=== PATIENT | male | born 1990 | race African-American/Black ===

== ENCOUNTER 2018-10-07 16:25 | Emergency (ER) | payer OTHER, MEDICAID ==
[~2018-10-07] VITALS: Ht 185.4 cm; Wt 91.6 kg
[~2018-10-07 16:25] MED LIST: ALBU18HF2 INH
--- NOTE | 2018-10-07 17:05 | NUR ---
FOR OTB C/O PRESSURE LIKE CHEST PAIN AND HEADACHE S/P ALTERCATION. PAIN LEVEL 9/10. PT IS AOX4, AMB, VSS, RR EVEN AND UNLABORED. SKIN INTACT. DENIES SOB, DIZZINESS, WEAKNESS, N/V. NO ACUTE DISTRESS NOTED. IN CUSTODY, WITH MAKAYLA AT BEDSIDE. READY FOR EVAL.
[2018-10-07] MEDS ORDERED: ACETAMINOPHEN ES 500 MG TABLET ONE (17:06)
--- NOTE | 2018-10-07 17:17 | NUR ---
PT TAKEN TO RADIOLOGY FOR CT VIA FABIOLA
[2018-10-07] MEDS ORDERED: ACETAMINOPHEN 325 MG TABLET PO ONE (17:30)
--- NOTE | 2018-10-07 17:54 | NUR ---
Patient discharged to home in stable condition. Written and verbal after care instructions given. Patient verbalizes understanding of instruction.
[2018-10-07 17:55] VITALS: BP 121/78
== END 2018-10-07 17:50 ==
LOC: ER 16:36
DX: S06.0X0A Concussion without loss of consciousness, initial encounter (principal); R07.89 Other chest pain; F20.9 Schizophrenia, unspecified; J45.909 Unspecified asthma, uncomplicated; F31.9 Bipolar disorder, unspecified; Z79.899 Other long term (current) drug therapy; Y04.0XXA Assault by unarmed brawl or fight, initial encounter; Y93.89 Activity, other specified; Y92.89 Other specified places as the place of occurrence of the external cause; Y99.8 Other external cause status
CPT/HCPCS: 70450-TC; 71045-TC

== ENCOUNTER 2019-03-03 12:20 | Emergency (ER) | payer OTHER, MEDICAID ==
[~2019-03-03] VITALS: Ht 185.4 cm; Wt 94.8 kg
--- NOTE | 2019-03-03 12:30 | NUR ---
PT BIB DEBURR TECHNICIAN IN CUSTODY C/O MIDSTERNAL CHEST PAIN, NON RADIATING X 2 HOURS, PT IS AAOX4, NOT IN RESPIRATORY DISTRESS, V/S STABLE, KEPT RESTED AND COMFORTABLE, WILL CONTINUE TO MONITOR.
--- NOTE | 2019-03-03 12:40 | NUR ---
SEEN AND EXAMINED URVASHI SAUNDERS.
[2019-03-03] MEDS ORDERED: MAG HYDROX/AL HYDROX/SIMETH 30 ML UDC ONE (12:52)
--- NOTE | 2019-03-03 12:55 | NUR ---
VAT TENDER AT BEDSIDE FOR XRAY.
--- NOTE | 2019-03-03 12:55 | NUR ---
ER PHLEB AT BEDSIDE FOR BLOOD DRAW.
[2019-03-03] MEDS ORDERED: MAG HYDROX/AL HYDROX/SIMETH 30 ML UDC PO ONE (13:00)
[2019-03-03 13:14] LABS: BASOPHILS # (AUTO) 0.1 /CMM (0.0-0.2); BASOPHILS % (AUTO) 1.3 % (0.0-2.0); EOSINOPHILS % (AUTO) 2.8 % (0.0-6.0); HEMATOCRIT 49 % (39-51); HEMOGLOBIN 16.1 g/dL (13.5-17.5); LYMPHOCYTES # (AUTO) 1.6 /CMM (0.8-4.8); LYMPHOCYTES % (AUTO) 28.2 % (20.0-44.0); MEAN CORPUSCULAR HGB CONC 33 g/dl (31.0-36.0); MEAN CORPUSCULAR VOLUME 89 fL (80-96); MONOCYTES # (AUTO) 0.5 /CMM (0.1-1.30); MONOCYTES % (AUTO) 9.6 % (2.0-12.0); NEUTROPHILS # (AUTO) 3.3 /CMM (1.8-8.9); NEUTROPHILS % (AUTO) 58.1 % (43.0-81.0); PLATELET COUNT (AUTO) 277 /CMM (150-450); RED BLOOD CELL COUNT(AUTO) 5.56 MIL/uL (4.5-6.0); WHITE BLOOD COUNT (AUTO) 5.7 K/uL (4.3-11.0)
[2019-03-03 13:22] LABS: CALCIUM, SERUM 9.1 mg/dL (8.5-10.1); CREATININE 0.7 mg/dL (0.6-1.3); POTASSIUM 4.4 mmol/L (3.5-5.1)
[2019-03-03] MEDS ORDERED: ALBUTEROL FS 2.5 MG/3 ML VIAL.NEB NEB ONE (13:30)
[2019-03-03] MEDS ORDERED: IPRATROPIUM NEB FS 0.5 MG/2.5 ML AMPUL.NEB NEB ONE (13:30)
[2019-03-03] MEDS ORDERED: ACETAMINOPHEN ES 500 MG TABLET ONE (13:40)
[2019-03-03] MEDS ORDERED: IPRATROPIUM NEB FS 0.5 MG/2.5 ML AMPUL.NEB ONE (13:41)
[2019-03-03] MEDS ORDERED: ALBUTEROL FS 2.5 MG/3 ML VIAL.NEB ONE (13:41)
--- NOTE | 2019-03-03 13:42 | NUR ---
RT AT BEDSIDE FOR BREATHING TREATMENT.
--- NOTE | 2019-03-03 14:34 | NUR ---
PAGED DR NAM FOR CARDIOLOGY
[2019-03-03] MEDS ORDERED: ASPIRIN 81 MG TAB.CHEW PO ONE (15:00)
--- NOTE | 2019-03-03 15:03 | NUR ---
DIFFICULTY ESTABLISHING IV LINE, ANDREA SAUNDERS AWARE.
--- NOTE | 2019-03-03 15:04 | NUR ---
URINE SPECIMEN COLLECTED AND SENT TO LAB.
[2019-03-03] MEDS ORDERED: ASPIRIN 81 MG TAB.CHEW ONE (15:07)
[2019-03-03] MEDS ORDERED: IOHEXOL-350 100 ML VIAL IV ONE ×4 (15:11→17:58)
[2019-03-03] MEDS ORDERED: CT SWABBABLE VALVE TRANS SET 1 EA INFUS.SET MC ONE ×4 (15:12→17:58)
[2019-03-03] MEDS ORDERED: IV NS 0.9% 250 ML IV ONE ×4 (15:12→17:58)
--- NOTE | 2019-03-03 16:39 | NUR ---
PT IS WHEELED TO CT SCAN VIA WHEELCHAIR
[2019-03-03] MEDS ORDERED: NITROGLYCERIN 0.4 MG/TAB BOTTLE ONE (16:48)
[2019-03-03] MEDS ORDERED: METOPROLOL TARTRATE INJ 5 MG/5 ML AMPUL ONE ×2 (16:51→17:58)
[2019-03-03] MEDS ORDERED: METOPROLOL TARTRATE INJ 5 MG/5 ML AMPUL IVP ONE (17:00)
[2019-03-03] MEDS ORDERED: NITROGLYCERIN 0.4 MG/TAB BOTTLE SL ONE (17:00)
[2019-03-03] MEDS ORDERED: IV NS 0.9% 500 ML IV ONE ×2 (17:00)
--- NOTE | 2019-03-03 18:27 | NUR ---
FOOD TRAY PROVIDED.
--- NOTE | 2019-03-03 19:22 | NUR ---
IV removed. Catheter intact and site benign. Pressure and 4x4 applied to site. No bleeding noted. Patient discharged to home in stable condition. Written and verbal after care instructions given. Patient verbalizes understanding of instruction.
[2019-03-03 19:23] VITALS: BP 122/71
== END 2019-03-03 19:24 ==
LOC: ER 12:20
DX: R07.89 Other chest pain (principal); R79.89 Other specified abnormal findings of blood chemistry; J45.909 Unspecified asthma, uncomplicated; F31.9 Bipolar disorder, unspecified; F20.9 Schizophrenia, unspecified; Z02.89 Encounter for other administrative examinations
CPT/HCPCS: 36415; 71045; 75574; 80048; 80305; 84484 ×2; 85025; 93005 ×2; 94640 ×2; 99284; J3490 ×2; J7050 ×4; Q9967 ×4

== ENCOUNTER 2020-08-09 01:38 | Emergency (ER) | payer OTHER ==
[~2020-08-09] VITALS: Ht 185.4 cm; Wt 90.7 kg
--- NOTE | 2020-08-09 01:45 | NUR ---
PT BIBA FOR GENERALIZED ABD PAIN W/ N/V/D/ X 1 DAY. PT AAOX4, VSS,RESPIRATIONS EVEN AND UNLABORED ON RA W/ NAD NOTED. PT CONNECTED TO THE MONITOR AND POX
[2020-08-09 02:23] LABS: BASOPHILS % (AUTO) 0.5 % (0.0-2.0); EOSINOPHILS % (AUTO) 0.4 % (0.0-6.0); HEMATOCRIT 49 % (39-51); HEMOGLOBIN 15.7 g/dL (13.5-17.5); LYMPHOCYTES # (AUTO) 0.7 /CMM (0.8-4.8); LYMPHOCYTES % (AUTO) 8.1 % (20.0-44.0); MEAN CORPUSCULAR HGB CONC 32 g/dl (31.0-36.0); MEAN CORPUSCULAR VOLUME 89 fL (80-96); MONOCYTES # (AUTO) 0.6 /CMM (0.1-1.30); MONOCYTES % (AUTO) 7.3 % (2.0-12.0); NEUTROPHILS # (AUTO) 7.3 /CMM (1.8-8.9); NEUTROPHILS % (AUTO) 83.7 % (43.0-81.0); PLATELET COUNT (AUTO) 266 /CMM (150-450); RED BLOOD CELL COUNT(AUTO) 5.56 MIL/uL (4.5-6.0); WHITE BLOOD COUNT (AUTO) 8.7 K/uL (4.3-11.0)
[2020-08-09 02:44] LABS: CALCIUM, SERUM 9.2 mg/dL (8.5-10.1); CREATININE 0.8 mg/dL (0.6-1.3); POTASSIUM 3.7 mmol/L (3.5-5.1)
[2020-08-09 02:50] LABS: ALBUMIN 3.1 g/dL (3.4-5.0); BILIRUBIN,DIRECT 0.1 mg/dL (0.0-0.2); BILIRUBIN,TOTAL 0.3 mg/dL (0.2-1.0); TOTAL PROTEIN, SERUM 8.4 g/dL (6.4-8.2)
[2020-08-09] MEDS ORDERED: ONDANSETRON HCL/PF 4 MG/2 ML VIAL ONE (03:29)
[2020-08-09] MEDS ORDERED: IV NS 0.9% 1,000 ML BAG IV ONE (03:30)
[2020-08-09] MEDS ORDERED: ONDANSETRON HCL/PF 4 MG/2 ML VIAL IVP ONE (03:30)
[2020-08-09] MEDS ORDERED: ONDANSETRON 4 MG TAB.RAPDIS ONE (03:52)
[2020-08-09] MEDS ORDERED: ONDANSETRON 4 MG TAB.RAPDIS SL ONE (04:00)
--- NOTE | 2020-08-09 05:57 | NUR ---
Patient discharged to home in stable condition. Written and verbal after care instructions given. Patient verbalizes understanding of instruction.
--- NOTE | 2020-08-09 05:57 | NUR ---
PATIENT IS AMBULATORY WITH A STEADY GAIT.
[2020-08-09 05:58] VITALS: BP 132/74
== END 2020-08-09 05:59 | disposition home or self-care (01) ==
LOC: ER 01:40
DX: R10.84 Generalized abdominal pain (principal); R19.7 Diarrhea, unspecified; J45.909 Unspecified asthma, uncomplicated; Z59.0 Homelessness; Z79.899 Other long term (current) drug therapy
CPT/HCPCS: 36415; 80048; 80076; 83690; 85025; 99283; J2405; J7030; Q0162

== ENCOUNTER 2021-05-25 02:53 | Inpatient (IN) | payer MEDICAID, OTHER ==
[~2021-05-25] VITALS: Ht 182.9 cm; Wt 104.3 kg
[2021-05-25] MEDS ORDERED: LORAZEPAM INJ 2 MG/ML VIAL ONE ×3 (03:00→09:23)
[2021-05-25] MEDS ORDERED: LORAZEPAM INJ 2 MG/ML VIAL IM ONE (03:00)
--- NOTE | 2021-05-25 03:15 | NUR ---
PATIENT BIBRA C/O SMOKING AND INJECTING UNKNOWN SUBSTANCE. PATIENT IS A/O X 3, RR EVEN, NO SIGNS OF SOB NOTED. PATIENT PLACED IN ER BED 14, WITH SITTER AT BEDSIDE.
[2021-05-25] MEDS ORDERED: HALOPERIDOL LACTATE INJ 5 MG/ML VIAL ONE (03:25)
[2021-05-25] MEDS ORDERED: diphenhydrAMINE HCL 50 MG/ML VIAL ONE (03:25)
[2021-05-25] MEDS ORDERED: diphenhydrAMINE HCL 50 MG/ML VIAL IM ONE (03:30)
[2021-05-25] MEDS ORDERED: HALOPERIDOL LACTATE INJ 5 MG/ML VIAL IM ONE (03:30)
--- NOTE | 2021-05-25 03:33 | NUR ---
[employer] AT BED SIDE TO PALCE PT ON HOLD.
[2021-05-25 03:35] LABS: BASOPHILS # (AUTO) 0.1 K/uL (0.0-0.2); BASOPHILS % (AUTO) 0.7 % (0.0-2.0); EOSINOPHILS % (AUTO) 0.2 % (0.0-6.0); HEMATOCRIT 43 % (39-51); HEMOGLOBIN 13.9 g/dL (13.5-17.5); LYMPHOCYTES % (AUTO) 13.9 % (20.0-44.0); MEAN CORPUSCULAR HGB CONC 33 g/dl (31.0-36.0); MEAN CORPUSCULAR VOLUME 84 fL (80-96); MONOCYTES # (AUTO) 2.1 K/uL (0.1-1.30); MONOCYTES % (AUTO) 14.9 % (2.0-12.0); NEUTROPHILS % (AUTO) 70.3 % (43.0-81.0); PLATELET COUNT (AUTO) 235 K/uL (150-450); RED BLOOD CELL COUNT(AUTO) 5.04 MIL/uL (4.5-6.0); WHITE BLOOD COUNT (AUTO) 14.3 K/uL (4.3-11.0)
[2021-05-25 03:48] LABS: CALCIUM, SERUM 8.5 mg/dL (8.5-10.1); CARBON DIOXIDE 26 mmol/L (21-32); CHLORIDE 101 mmol/L (98-107); CREATININE 1.4 mg/dL (0.6-1.3); GLUCOSE 108 mg/dL (74-106); POTASSIUM 3.2 mmol/L (3.5-5.1); SODIUM SERUM 141 mmol/L (136-145); UREA NITROGEN, BLOOD 23 mg/dL (7-18)
[2021-05-25 03:53] LABS: ALANINE AMINOTRANSFERASE 228 U/L (12-78); ALBUMIN 3.2 g/dL (3.4-5.0); ALCOHOL, BLOOD < 3 mg/dL (0-0); ALKALINE PHOSPHATASE 80 U/L (46-116); ASPARTATE AMINOTRANSFERASE 412 U/L (15-37); BILIRUBIN,DIRECT 0.2 mg/dL (0.0-0.2); BILIRUBIN,TOTAL 0.7 mg/dL (0.2-1.0)
[2021-05-25 03:56] LABS: ACETAMINOPHEN 0 ug/ml (10-30)
--- NOTE | 2021-05-25 04:14 | NUR ---
URINE COLLECTED AND SENT TO LAB
[2021-05-25 04:19] LABS: BILIRUBIN,URINE MODERATE (NEGATIVE); COLOR,URINE DARK YELLOW (YELLOW); LEUKOCYTE ESTERASE ,URINE Negative (NEGATIVE); NITRITE, URINE Negative (NEGATIVE); PH,URINE 5.5 (5.0-8.0); PROTEIN,URINE >=300 mg/dl (NEGATIVE); UGLUCOSE Negative (NEGATIVE)
[2021-05-25 04:24] LABS: BASOPHILS % (MANUAL) 0 % (0.0-2.0); EOSINOPHILS % (MANUAL) 0 % (0-4); LYMPHOCYTES % (MANUAL) 13 % (16-48); MONOCYTES % (MANUAL) 12 % (0-11.0); NEUTROPHILS % (MANUAL) 75 (42-76)
[2021-05-25 04:36] LABS: BACTERIA,URINE None seen /HPF (None Seen); COARSE GRANULAR CASTS,URINE Moderate /LPF (None Seen); SQUAMOUS EPITHELIAL CELL,UR Few /HPF (None Seen); WBC,URINE 0-2 /HPF (0-3)
--- NOTE | 2021-05-25 06:02 | NUR ---
PATIENT IN BED SLEEPING, EASY TO AROSUE. PATIENT VSS, PATIENT CONNECETED TO NUMERICAL CONTROL ROUTER OPERATOR AND POX.
[2021-05-25] MEDS: IV NS 0.9% 1,000 ML IV ONE ×2 (07:14→07:19)
[2021-05-25] MEDS: LORAZEPAM INJ 2 MG/ML VIAL IM ONE ×2 (07:14→07:19)
--- NOTE | 2021-05-25 09:23 | NUR ---
MOVE SHEET SUBMITTED.
[2021-05-25] MEDS ORDERED: IV NS 0.9% 1,000 ML IV ONE ×2 (09:30)
[2021-05-25] MEDS ORDERED: LORAZEPAM INJ 2 MG/ML VIAL IV ONE (09:30)
--- NOTE | 2021-05-25 09:30 | NUR ---
PATIENT IS STILL SCREAMING, YELLING AND RESTLESS.
--- NOTE | 2021-05-25 09:53 | NUR ---
COVID SWAB DONE AND SENT TO THE LAB
[2021-05-25] MEDS ORDERED: ONDANSETRON HCL/PF 4 MG/2 ML VIAL IVP PRN (12:00)
[2021-05-25] MEDS ORDERED: Z GUARD REMEDY 2 OZ OINT TP PRN (12:00)
[2021-05-25] MEDS ORDERED: MAG HYDROX/AL HYDROX/SIMETH 30 ML UDC PO PRN (12:00)
[2021-05-25] MEDS ORDERED: MAGNESIUM HYDROXIDE 30 ML UDC PO PRN (12:00)
[2021-05-25] MEDS ORDERED: ACETAMINOPHEN 325 MG TABLET PO PRN (12:00)
[2021-05-25] MEDS ORDERED: LORAZEPAM INJ 2 MG/ML VIAL IV PRN (12:00)
--- NOTE | 2021-05-25 12:26 | NUR ---
PSYCH CONSULT ORDERED BY FLEX AU, LIQUOR STORES AND AGENCIES SUPERVISOR PSYCH IS DR. VERA. [facility]
[2021-05-25] MEDS: IV NS 0.9% 1,000 ML IV PRN (12:55)
[2021-05-25 13:20] LABS: CALCIUM, SERUM 7.8 mg/dL (8.5-10.1); CREATININE 0.8 mg/dL (0.6-1.3); POTASSIUM 3.3 mmol/L (3.5-5.1)
--- NOTE | 2021-05-25 15:52 | NUR ---
PATIENT ASLEEP, RESTING, NO DISTRESS NOTED. NEEDS ATTENDED.
[2021-05-25] MEDS: HEPARIN SODIUM, PORCINE 5000 UNITS/1 ML VIAL SQ SCH ×2 (17:11→21:00)
--- NOTE | 2021-05-25 19:45 | NUR ---
PATIENT ROOM NO AVAILABLE NO SITTER AT THIS TIME
[2021-05-25] MEDS ORDERED: ZOLPIDEM TARTRATE 5 MG TABLET PO PRN (22:00)
--- NOTE | 2021-05-25 22:30 | NUR ---
PATIENT IN BED RESTING, A/O, RR EVEN AND UNLABORED NO SOB NOTED. PATIENT VSS. PATIENT CONNECTED TO PROGRAM PROJECT MANAGER.
--- NOTE | 2021-05-26 06:17 | NUR ---
ROOM 106 AFTER CHANGE OF SHIFT
--- NOTE | 2021-05-26 07:45 | NUR ---
REPORT GIVEN TO EDMUND OLSON. PATIENT ASLEEP BUT EASILY AROUSABLE. PATIENT CALM AT THIS TIME. KEPT COMFORTABLE. TRANSFERRED TO ROOM 106 IN STABLE CONDITION.
--- NOTE | 2021-05-26 07:50 | NUR ---
RN NOTE RECEIVE REPORT FROM ER NURSE DENNISE.
--- NOTE | 2021-05-26 07:59 | NUR ---
RN NOTE RECEIVE PATIENT FROM ER VIA GURNEY, AMBULATED FROM THE GURNEY TO THE BED STEADY GAIT, ADMITTING PATIENT AT THIS TIME, BODY CHECK DONE, SKIN INTACT.
[2021-05-26 08:00] VITALS: BP 117/74
[2021-05-26] MEDS: IV NS 0.9% 1,000 ML IV PRN ×3 (08:43→17:54)
[2021-05-26] MEDS: HEPARIN SODIUM, PORCINE 5000 UNITS/1 ML VIAL SQ SCH ×2 (09:10→21:37)
--- NOTE | 2021-05-26 11:32 | NUR ---
RN NOTE FLEX AU NOTIFIED PATIENT REFUSED HIS BLOOD DRAW THIS AM, AND ALSO REFUSED HIS REDRAW, PATIENT IS AWAKE, AND ALERT AND ORIENTED X3 AT THIS TIME.
--- NOTE | 2021-05-26 14:40 | NUR ---
RN NOTE NOTIFIED FLEX CASANOVA-MB OF 68.5, NO NEW ORDER AT THIS TIME.
[2021-05-26 15:44] LABS: BASOPHILS % (AUTO) 0.2 % (0.0-2.0); EOSINOPHILS % (AUTO) 1.4 % (0.0-6.0); HEMATOCRIT 38 % (39-51); HEMOGLOBIN 12.2 g/dL (13.5-17.5); LYMPHOCYTES # (AUTO) 1.5 K/uL (0.8-4.8); LYMPHOCYTES % (AUTO) 19.5 % (20.0-44.0); MEAN CORPUSCULAR HGB CONC 32 g/dl (31.0-36.0); MEAN CORPUSCULAR VOLUME 85 fL (80-96); MONOCYTES # (AUTO) 0.8 K/uL (0.1-1.30); MONOCYTES % (AUTO) 11.3 % (2.0-12.0); NEUTROPHILS % (AUTO) 67.6 % (43.0-81.0); PLATELET COUNT (AUTO) 183 K/uL (150-450); RED BLOOD CELL COUNT(AUTO) 4.49 MIL/uL (4.5-6.0); WHITE BLOOD COUNT (AUTO) 7.5 K/uL (4.3-11.0)
[2021-05-26 15:57] LABS: CREATININE 0.6 mg/dL (0.6-1.3); MAGNESIUM 2.2 mg/dL (1.8-2.4); POTASSIUM 3.2 mmol/L (3.5-5.1)
[2021-05-26 16:00] VITALS: BP 117/74
--- NOTE | 2021-05-26 16:59 | NUR ---
RN NOTE DR. FLEX AU NOTIFIED PATIENT POTASSIUM OF 3.2, MD AWARE NO NEW ORDER AT THIS TIME.
[2021-05-26] MEDS: OLANZAPINE 5 MG TABLET PO SCH (17:17)
[2021-05-26] MEDS ORDERED: POTASSIUM CHLORIDE 20 MEQ TAB.PRT.SR PO ONE (17:30)
--- NOTE | 2021-05-26 18:00 | NUR ---
RN NOTES RECEIVED PATIENT ON BED, AWAKE, ALERT, AND VERBALLY RESPONSIVE. ABLE TO MAKE NEEDS KNOWN. NO SIGNIFICANT CHANGES DURING SHIFT. BREATHING EVEN AND UNLABORED. CURRENTLY ON ROOM AIR. SKIN IS WARM AND DRY TO TOUCH. AFEBRILE. NO COMPLAINTS OF PAIN DURING SHIFT. PATIENT IS INDEPENDENT AND CAN AMBULATE TO THE BATHROOM. PATIENT ON DVT PROPHYLAXIS, NO SIGNS AND SYMPTOMS OF BLEEDING. ON ASPIRATION PRECAUTION DURING MEALS. REPLACED POTASSIUM SECONDARY TO LOW POTASSIUM LEVEL. SAFETY MEASURES OBSERVED. ON 1-1 OBSERVATION AT THIS TIME. PLACED CALL LIGHT WITHIN SHIFT. WILL ENDORSE TO NOC SHIFT ACCORDINGLY.
--- NOTE | 2021-05-26 19:00 | NUR ---
RN NOTE RECEIVED PATIENT IN BED, AO X 4, IN NO S/SX OF ACUTE DISTRESS AT THIS TIME, ON 5150 HOLD START 05/25/210 AND ENDS 05/28/21299, SITTER AT BEDSIDE, BREATHING EVEN AND UNLABORED, SATURATION AT 96% ON ROOM AIR, HR IS 80. NOTED IV SITE AT RFA 22G, PATENT AND FLUSHING WELL, NO S/S OF INFECTION OR INFILTRATION WITH IV FLUID OF NS INFUSING AT 200 ML/HR. SAFETY MEASURES IMPLEMENTED. PATIENT BED ALARM IS ON. HEAD OF BED ELEVATED. BED IS LOCKED, IN LOWEST POSITION AND SIDE RAILS UP. CALL LIGHT WITHIN REACH OF THE PATIENT. WILL CONTINUE TO MONITOR AND REASSESS FOR ANY CHANGES.
[2021-05-26 20:00] VITALS: BP 133/77
[2021-05-26] MEDS ORDERED: OLANZAPINE 10 MG TABLET PO SCH (22:00)
[2021-05-27] MEDS: IV NS 0.9% 1,000 ML IV PRN ×4 (00:29→18:43)
[2021-05-27 04:00] VITALS: BP 108/71
--- NOTE | 2021-05-27 07:52 | NUR ---
RN NOTES RECEIVED PATIENT ON BED, AWAKE, ALERT AND VERBALLY RESPONSIVE. AOX4. ABLE TO MAKE NEEDS KNOWN. BREATHING EVEN AND UNLABORED. NO SOB NOTED. CURRENTLY ON ROOM AIR. SKIN IS WARM AND DRY TO TOUCH AFEBRILE. NO COMPLAINTS OF DISCOMFORT. PATIENT NOTED WITH IV ACCESS ON RIGHT FOREARM. PATENT AND ABLE TO FLUSH. PATIENT CURRENTLY ON IV HYDRATION. PATIENT BED ON LOWEST POSITION, 1-1 SITTER AT THE MOMENT. CALL LIGHT WITHIN REACH.
[2021-05-27 08:00] VITALS: BP 128/71
[2021-05-27] MEDS: OLANZAPINE 5 MG TABLET PO SCH ×2 (08:20→17:13)
[2021-05-27] MEDS: HEPARIN SODIUM, PORCINE 5000 UNITS/1 ML VIAL SQ SCH ×2 (08:20→20:55)
[2021-05-27 10:11] LABS: BASOPHILS % (AUTO) 0.4 % (0.0-2.0); EOSINOPHILS % (AUTO) 1.7 % (0.0-6.0); HEMATOCRIT 38 % (39-51); HEMOGLOBIN 12.2 g/dL (13.5-17.5); LYMPHOCYTES # (AUTO) 1.2 K/uL (0.8-4.8); LYMPHOCYTES % (AUTO) 17.5 % (20.0-44.0); MEAN CORPUSCULAR HGB CONC 32 g/dl (31.0-36.0); MEAN CORPUSCULAR VOLUME 87 fL (80-96); MONOCYTES # (AUTO) 0.8 K/uL (0.1-1.30); NEUTROPHILS # (AUTO) 4.9 K/uL (1.8-8.9); NEUTROPHILS % (AUTO) 69.4 % (43.0-81.0); PLATELET COUNT (AUTO) 207 K/uL (150-450); WHITE BLOOD COUNT (AUTO) 7.1 K/uL (4.3-11.0)
[2021-05-27 10:13] LABS: CALCIUM, SERUM 8.3 mg/dL (8.5-10.1); CREATININE 0.6 mg/dL (0.6-1.3); POTASSIUM 3.4 mmol/L (3.5-5.1)
--- NOTE | 2021-05-27 10:22 | NUR ---
RN NOTE PATIENT ATTEMPTED TO LEAVE THE HOSPITAL, PATIENT ON 72 HOUR HOLD UNTIL 05/28/21 0300, CODE OLAMIDE CALLED, EXPLAINED TO PATIENT THAT HE WAS PUT ON A 72 HOUR HOLD, PATIENT UNDERSTOOD AND WENT BACK TO HIS ROOM PATIENT ON HIS ROOM AT THIS TIME, MADE COMFORTABLE, SUPERVISOR SCOURING PADS FLEX AU MADE AWARE, WILL CONTINUE TO MONITOR.
[2021-05-27] MEDS ORDERED: OLAN10TA3 PO (10:24)
[2021-05-27] MEDS ORDERED: OLAN5TAB3 PO (10:24)
--- NOTE | 2021-05-27 11:45 | NUR ---
RN NOTES PATIENT SEEN BY DR. VERA FOR REEVALUATION. DR. VERA EXPLAINED TO PATIENT REGARDING CURRENT HOLD STATUS. PATIENT WILL BE ON HOLD UNTIL MEDICALLY STABLE. DR. VERA EXPLAINED TO THE PATIENT, PATIENT VERBALIZED UNDERSTANDING.
--- NOTE | 2021-05-27 17:00 | NUR ---
RN NOTE SEEN BY DR. VERA, PATIENT WILL BE PUT ON HOLD FOR 14 DAYS BUT CAN BE DISCONTINUED UPON RE EVALUATION OR IF NEEDED. FLEX AU MADE AWARE, POTASSIUM OF 3.4 FLEX AU MADE AWARE. CREATININE KINASE TREANDING DOWN 05/26- 8952 , 05/27 8050, FLEX AU NOTIFIED. CK-MB RESULT STILL PENDING.
--- NOTE | 2021-05-27 17:29 | NUR ---
RN NOTES RECEIVED A CALL FROM LAB. PATIENT POSITIVE FOR MRSA OF THE NARES, MADE AWARE. MD WILL PUT IN ORDER.
--- NOTE | 2021-05-27 18:56 | NUR ---
RN NOTES NO SIGNIFICANT CHANGES DURING SHIFT. PATIENT IN BED, SLEEPING, AXO4. ABLE TO MAKE NEEDS KNOWN. BREATHING EVEN AND UNLABORED. NO SOB NOTED. NO COMPLAINTS OF PAIN DURING SHIFT. SKIN IS WARM AND DRY TO TOUCH. AFEBRILE. PATIENT ABLE TO AMBULATE TO THE RESTROOM. PATIENT CURRENTLY ON 1-1 SITTER. EARLIER PATIENT ATTEMPTED TO ELOPE. EXPLAINED TO PATIENT THE REASON FOR HOLD. PATIENT VERBALIZED UNDERSTANDING AND RETURNED TO THIS ROOM. PATIENT POSITIVE FOR MRSA IN THE NARES. MD NOTIFIED. CONTACT/DROPLET PRECAUTION OBSERVED. PLACED CALL LIGHT WITHIN REACH. ENDORSED ACCORDINGLY TO NEXT SHIFT FOR CONTINUITY OF CARE.
[2021-05-27 20:00] VITALS: BP 134/79
--- NOTE | 2021-05-27 20:30 | NUR ---
2030 Received patient in bed with sitter at bedside. Patient asleep but easily arousable. No c/o pain or any discomfort when asked. Independent with turning and repositioning. IVF infusing to RFA site. With leaking noted when checked for patency. Removed and inserted new IV site on right hand. Patient denied SOB. Cooperative with care. Kept clean and comfortable. Needs attended. Sitter remains at bedside for safety.
[2021-05-27] MEDS ORDERED: OLANZAPINE 10 MG TABLET PO SCH (22:00)
--- NOTE | 2021-05-27 23:50 | NUR ---
2350 Sleeping on his side. Sitter at bedside. No significant changes in status noted. Cont. to deny pain when asked. Cooperative with care. All needs anticipated. Kept clean and dry at all times.
[2021-05-28] MEDS: IV NS 0.9% 1,000 ML IV PRN ×2 (02:05→08:23)
--- NOTE | 2021-05-28 03:50 | NUR ---
0350 Assisted to bathroom with steady gait. No significant changes in condition noted. Remains cooperative with care. Sitter at bedside at all times for safety.
--- NOTE | 2021-05-28 06:00 | NUR ---
0600 Reassessment done. Sleeping on his stomach. No signs of distress noted. Cont. to deny pain when asked. IVF infusing to right hand site. Instructed patient to be careful with turning to avoid IV dislodgement. No behavior problem noted. Kept clean and comfortable at all times. Needs attended.
[2021-05-28 06:09] LABS: BASOPHILS % (AUTO) 0.5 % (0.0-2.0); HEMATOCRIT 35 % (39-51); HEMOGLOBIN 11.5 g/dL (13.5-17.5); LYMPHOCYTES # (AUTO) 1.7 K/uL (0.8-4.8); LYMPHOCYTES % (AUTO) 27.8 % (20.0-44.0); MEAN CORPUSCULAR HGB CONC 33 g/dl (31.0-36.0); MEAN CORPUSCULAR VOLUME 86 fL (80-96); MONOCYTES # (AUTO) 0.7 K/uL (0.1-1.30); MONOCYTES % (AUTO) 10.8 % (2.0-12.0); NEUTROPHILS # (AUTO) 3.6 K/uL (1.8-8.9); NEUTROPHILS % (AUTO) 58.9 % (43.0-81.0); PLATELET COUNT (AUTO) 224 K/uL (150-450); RED BLOOD CELL COUNT(AUTO) 4.06 MIL/uL (4.5-6.0); WHITE BLOOD COUNT (AUTO) 6.1 K/uL (4.3-11.0)
--- NOTE | 2021-05-28 07:30 | NUR ---
32 Report given to WHITNEY Gerardo with questions answered. Addendum: 05/28/21 at 0740 by PRESTON SONI RN 729 Report given to WHITNEY Bell for transfer of care with questions answered.
--- NOTE | 2021-05-28 07:30 | NUR ---
RN NOTE RECEIVED PATIENT IN BED, AO X 4, ON ROOM AIR O2 SAT OF 98% BREATHING EVEN AND UNLABORED, ON 14 DAY HOLD, ON 1 ON 1 SITTER , HR IS 80. NOTED IV SITE AT RFA 22G, PATENT AND FLUSHING WELL, NO S/S OF INFECTION OR INFILTRATION WITH IV FLUID OF NS INFUSING AT 200 ML/HR. SAFETY MEASURES IMPLEMENTED. PATIENT BED ALARM IS ON. HEAD OF BED ELEVATED. BED IS LOCKED, IN LOWEST POSITION AND SIDE RAILS UP. CALL LIGHT WITHIN REACH OF THE PATIENT. WILL CONTINUE TO MONITOR AND REASSESS FOR ANY CHANGES.
[2021-05-28 07:32] LABS: CALCIUM, SERUM 8.2 mg/dL (8.5-10.1); CREATININE 0.6 mg/dL (0.6-1.3); MAGNESIUM 1.7 mg/dL (1.8-2.4); PHOSPHORUS 4.1 mg/dL (2.5-4.9); POTASSIUM 3.6 mmol/L (3.5-5.1)
[2021-05-28 08:00] VITALS: BP 151/103
[2021-05-28] MEDS: Magnesium 1GM/D5W 100ML PREMIX 100 ML IV SCH ×2 (09:34→10:44)
[2021-05-28] MEDS: HEPARIN SODIUM, PORCINE 5000 UNITS/1 ML VIAL SQ SCH (09:34)
[2021-05-28] MEDS: OLANZAPINE 5 MG TABLET PO SCH ×2 (09:34→16:45)
--- NOTE | 2021-05-28 10:41 | NUR ---
RN NOTE PATIENT SEEN BY DR KENNEY, DISCONTINUE HOLD ORDER, CK-MB OF 20.3, FLEX AU MADE AWARE.
--- NOTE | 2021-05-28 11:00 | NUR ---
RN NOTE PATIENT SEEN BY DR VERA PATIENT DISCONTINUE 14 DAY HOLD
--- NOTE | 2021-05-28 13:41 | NUR ---
RN NOTE PATIENT SEEN BY DR VERA FOLLOWED UP WITH AGRICULTURAL PRODUCE WASHER FOR DISCHARGE PLANNING.
[2021-05-28] MEDS ORDERED: MUPIROCIN OINT 2% 22 GM TUBE NS SCH (15:30)
--- NOTE | 2021-05-28 15:30 | NUR ---
SS consult SS consult requested for homelessness and D/C planning. Pt is a 30-year-old, male. SW met with pt at his bedside in the med-surg unit. Pt was alert and oriented x4. Pt presented calm and cooperative. Pt appeared well-groomed and appropriately dressed. Per chart, pt was brought in by ambulance on 05/25/21, with complaints of smoking and injecting an unknown substance. Per toxicology, pt is positive for amphetamine. Pt stated that he is currently homeless but has been receiving some support from his grandma and uncle. Pt stated that he has been homeless for the last 2 years. Pt stated that he regularly goes to his uncle's house to shower or receive some food. Pt stated, "I stay with my uncle sometimes." Pt reported that he is independent with his ADL's and ambulatory. Pt reported that he receives General Relief and food stamps as a source of income. Pt reported substance use hx and stated that he uses marijuana and drinks alcohol daily. Pt reported no hx of mental illness or hallucinations. Pt denied current SI/HI. SW offered the pt mental health, substance use, and homeless resources. Pt accepted the resources and thanked SW. Pt signed the homeless waiver and SW filed waiver in the pt's chart. SW discussed D/C plans with the pt. Pt plans to be D/C to the street and go to his uncle's home. Pt stated that he is able to use public transportation. PLAN Pt plans to be D/C to the street and go to his uncle's home. No further SS intervention at this time, however, SW will remain available as needed. RESOURCES: Year-round shelters: [facility] [address] [place], [place] [phone] ; [facility] [address] [place] [address]; [facility] [facility]. [facility] [address] SPA 4 | [facility] [place] Provider: [facility] Serve Address: [address], [address] # of Beds: 48 Population Served: [facility] Provider: First to Serve Address: [address] [facility], [address] # of Beds: 73 Population Served: [place] SPA 6 | [facility] Provider: [facility] Last Address: [address] [facility], [address] # of Beds: 63 Population Served: [place] SPA 3 | [facility] Provider: [facility] [place] Address: [address] [facility], [address] # of Beds: 75 Population Served: [place] SPA 8 | [facility] Provider: [facility] [place] Address: [address] [facility], [address] # of Beds: 80 Population Served: [place] SPA 1 | [facility] Provider: [facility] [place] Address: [address] [place] [address], [address] # of Beds: 85 Population Served: Co[place] SPA 2 | [facility] Provider: [facility] Address: Confidential (please call for location) # of Beds: 52 Population Served: Coed SPA 4 | [facility] Provider: [facility] Address: [address] [facility], [address] # of Beds: 49 Population Served: [facility] Provider: First To Serve Address: [address] [place] [address], [address] # of Beds: 27 Population Served: Ritad Hygiene: [facility]: [address] [address] [place] ; [facility] [address] [facility] ; [facility] [address] . Food Resources: [place] [facility] at [facility]- [address] [facility]; Meet Each Need with Dignity ([facility]) [address] [facility]; [facility] [address] [facility]; [facility] [address] [place]. Mental Health resources provided: [facility] [address] [place], [place] [address] ; [facility] [address] [facility] [address], [place] [address] ; [facility] [address] [facility] [place], [place] [id number] ; [facility] [address] [place], [place] [address] Healthcare Clinics: [facility] [address] [facility], [address] [place]. [place] ; [facility] [address] [facility] [address] [place] [address]; [facility] [address] [facility]. [place] [address] [phone] Counseling--[facility] [address] [facility], [address] [place], [place] [address] (Specializes in in-depth psychotherapy for emotional distress: anxiety, depression, interpersonal conflicts, life transitions, childhood abuse) PSYCHIATRIC OUTPATIENT SERVICES [facility] Partial Hospitalization and Intensive Outpatient Program (Managed Care and [place] Only) [address] [facility]. [facility] [id number] [facility] Partial Hospitalization and Outpatient Program [address] [address] [facility]. [address] [place], [place] [id number] [facility] Partial Hospitalization and Outpatient Program [address] [facility]. [place], [place] [phone] [facility] [place] [facility] [address] [facility]. [address] [place], [place] [address] [facility] Partial Hospitalization and Outpatient Program [address] [place], [place] [phone] Substance use resources provided included: [facility] Substance Abuse Self-Helpline (SASH) ; [facility] [address] [facility] [address] ; [facility] [address] [facility] [address] ; [facility] [address] [facility] [address] ; [facility] [address] [facility] [address] ; [facility] 9[address] [facility] [phone] ; [facility]; [facility] [place]; [facility]; Alcoholics Anonymous -[facility]
--- NOTE | 2021-05-28 17:40 | NUR ---
RN NOTE PATIENT PRESCRIPTION GIVEN, PATIENT UNCLE HIRAM ZAVALA MADE AWARE AND WILL PAY FOR PATIENT PRESCRIPTION.
--- NOTE | 2021-05-28 17:40 | NUR ---
RN NOTE PATIENT DISCHARGE WITH JULI[facility]N [facility]ASS TO TRAVEL TO [facility] [address] TO STAY, GAVE DISCHARGE INSTRUCTIONS, MEDICATION PRESCRIPTION AND DISCHARGE TEACHING, PATIENT ASSISTED OUT OF THE HOSPITAL AMBULATORY WITH MASK ON, VTS WNL.
== END 2021-05-28 18:47 | disposition home or self-care (01) | DRG 812 ==
LOC: ER 02:53 → TRANSITION 15:54 → TELE1 05-26 05:49 → MEDSG1 05-26 08:00
PROVIDERS: ADMIT Nurse Practitioner Acute Care; ATTEND Nurse Practitioner Acute Care
DX: T43.621A Poisoning by amphetamines, accidental (unintentional), initial encounter (principal); N17.0 Acute kidney failure with tubular necrosis; G92 Toxic encephalopathy; E44.1 Mild protein-calorie malnutrition; M62.82 Rhabdomyolysis; J45.909 Unspecified asthma, uncomplicated; N18.9 Chronic kidney disease, unspecified; Z59.0 Homelessness; D72.829 Elevated white blood cell count, unspecified; F15.10 Other stimulant abuse, uncomplicated; Z20.822 Contact with and (suspected) exposure to COVID-19; F20.9 Schizophrenia, unspecified; F31.9 Bipolar disorder, unspecified; E87.6 Hypokalemia; Z79.51 Long term (current) use of inhaled steroids; R74.01 Elevation of levels of liver transaminase levels; Y92.9 Unspecified place or not applicable; F05 Delirium due to known physiological condition
CPT/HCPCS: 36415; 71045-TC; 76705-TC; 80048-TC; 80061-TC; 80074; 80076-TC; 81001; 82550-TC; 82553; 83735-TC; 84100-TC; 85025-TC; 87081-TC; 93307-TC; G0378; G0480; J1200; J1630; J1644; J2060; J3475; J7030; U0003

== ENCOUNTER 2021-12-30 19:43 | Emergency (ER) | payer MEDICAID, OTHER ==
[~2021-12-30] VITALS: Ht 175.3 cm; Wt 81.6 kg
[~2021-12-30 19:43] MED LIST changes: -ALBU18HF2 INH; +OLAN10TA3 PO; +OLAN5TAB3 PO
[2021-12-30 19:46] VITALS: BP 144/79
--- NOTE | 2021-12-30 19:50 | NUR ---
COVID SWAB COLLECTED AND SENT TO LAB
== END 2021-12-30 20:24 ==
LOC: ER 19:45
DX: Z20.822 Contact with and (suspected) exposure to COVID-19 (principal); J45.909 Unspecified asthma, uncomplicated; Z59.00 Homelessness unspecified; F17.200 Nicotine dependence, unspecified, uncomplicated
CPT/HCPCS: 87426; 99283; C9803

== ENCOUNTER 2021-12-31 11:38 | Emergency (ER) | payer OTHER ==
[~2021-12-31] VITALS: Ht 182.9 cm; Wt 95.3 kg
--- NOTE | 2021-12-31 11:39 | NUR ---
TO ER BED 11. ANTOINE [employer] FROM LONG-TERM FOR OTB PT CC OF ABDOMINAL PAIN STARTED TODAY. DR MATHUR AT BEDSIDE.
[2021-12-31 12:06] LABS: BASOPHILS % (AUTO) 0.5 % (0.0-2.0); EOSINOPHILS % (AUTO) 0.4 % (0.0-6.0); HEMATOCRIT 54 % (39-51); HEMOGLOBIN 17.1 g/dL (13.5-17.5); LYMPHOCYTES # (AUTO) 0.7 K/uL (0.8-4.8); LYMPHOCYTES % (AUTO) 9.4 % (20.0-44.0); MEAN CORPUSCULAR HGB CONC 32 g/dl (31.0-36.0); MEAN CORPUSCULAR VOLUME 88 fL (80-96); MONOCYTES # (AUTO) 0.5 K/uL (0.1-1.30); MONOCYTES % (AUTO) 6.9 % (2.0-12.0); NEUTROPHILS # (AUTO) 6.1 K/uL (1.8-8.9); NEUTROPHILS % (AUTO) 82.8 % (43.0-81.0); PLATELET COUNT (AUTO) 301 K/uL (150-450); WHITE BLOOD COUNT (AUTO) 7.4 K/uL (4.3-11.0)
[2021-12-31 12:20] LABS: CALCIUM, SERUM 9.5 mg/dL (8.5-10.1); CREATININE 0.9 mg/dL (0.6-1.3); POTASSIUM 3.6 mmol/L (3.5-5.1)
[2021-12-31 12:26] LABS: ALBUMIN 3.4 g/dL (3.4-5.0); BILIRUBIN,DIRECT 0.1 mg/dL (0.0-0.2); BILIRUBIN,TOTAL 0.4 mg/dL (0.2-1.0); TOTAL PROTEIN, SERUM 8.6 g/dL (6.4-8.2)
--- NOTE | 2021-12-31 12:42 | NUR ---
Patient discharged to home in stable condition. Written and verbal after care instructions given. Patient verbalizes understanding of instruction.
[2021-12-31 12:45] VITALS: BP 137/91
== END 2021-12-31 12:45 ==
LOC: ER 11:39
DX: Z02.89 Encounter for other administrative examinations (principal); F15.10 Other stimulant abuse, uncomplicated; J45.909 Unspecified asthma, uncomplicated; F17.200 Nicotine dependence, unspecified, uncomplicated; Z59.00 Homelessness unspecified; Z79.899 Other long term (current) drug therapy
CPT/HCPCS: 36415; 80048-TC; 80076-TC; 83690-TC; 85025-TC

== ENCOUNTER 2022-02-20 12:08 | Inpatient (IN) | payer OTHER ==
[~2022-02-20] VITALS: Ht 188 cm; Wt 85.7 kg
--- NOTE | 2022-02-20 12:19 | NUR ---
BIB [employer] OFFICER, C/O HEAD, JAW & NECK PAIN S/P PHYSICAL ATTRACTION. VITALS ARE WITHIN NORMAL LIMITS, NO RESP DISTRESS NOTED.
[2022-02-20 13:17] LABS: BASOPHILS % (AUTO) 0.7 % (0.0-2.0); EOSINOPHILS % (AUTO) 2.6 % (0.0-6.0); HEMATOCRIT 49 % (39-51); HEMOGLOBIN 15.7 g/dL (13.5-17.5); LYMPHOCYTES # (AUTO) 1.7 K/uL (0.8-4.8); MEAN CORPUSCULAR HGB CONC 32 g/dl (31.0-36.0); MEAN CORPUSCULAR VOLUME 85 fL (80-96); MONOCYTES # (AUTO) 0.6 K/uL (0.1-1.30); MONOCYTES % (AUTO) 9.6 % (2.0-12.0); NEUTROPHILS # (AUTO) 3.8 K/uL (1.8-8.9); NEUTROPHILS % (AUTO) 60.1 % (43.0-81.0); PLATELET COUNT (AUTO) 329 K/uL (150-450); RED BLOOD CELL COUNT(AUTO) 5.82 MIL/uL (4.5-6.0); WHITE BLOOD COUNT (AUTO) 6.4 K/uL (4.3-11.0)
[2022-02-20 13:29] LABS: CALCIUM, SERUM 9.4 mg/dL (8.5-10.1); CARBON DIOXIDE 30 mmol/L (21-32); CHLORIDE 102 mmol/L (98-107); CREATININE 0.7 mg/dL (0.6-1.3); GLUCOSE 90 mg/dL (74-106); POTASSIUM 4.9 mmol/L (3.5-5.1); SODIUM SERUM 139 mmol/L (136-145); UREA NITROGEN, BLOOD 15 mg/dL (7-18)
--- NOTE | 2022-02-20 13:38 | NUR ---
TOPONIN 99
--- NOTE | 2022-02-20 14:08 | NUR ---
MOVE SHEET SUBMITTED.
--- NOTE | 2022-02-20 14:11 | NUR ---
GOT BED 119-1
--- NOTE | 2022-02-20 14:25 | NUR ---
IV ESTABLIHSED L AC 20G.
--- NOTE | 2022-02-20 14:26 | NUR ---
COVID TEST COLLECTED AND SENT
[2022-02-20] MEDS ORDERED: ASPIRIN 81 MG TAB.CHEW PO ONE (14:30)
--- NOTE | 2022-02-20 14:33 | NUR ---
[facility] CALLED JIG AND FIXTURE MAKER PAGED.
[2022-02-20] MEDS ORDERED: ASPIRIN 81 MG TAB.CHEW ONE (14:49)
[2022-02-20] MEDS ORDERED: ASPIRIN 325 MG TABLET ONE (14:52)
--- NOTE | 2022-02-20 14:53 | NUR ---
COVID SWAB SENT REPORT GIVEN TO LABORATORY CUREMAN FOR CONTINUITY OF CARE
[2022-02-20] MEDS ORDERED: LEVO150T8 PO (14:56)
[2022-02-20] MEDS ORDERED: Z GUARD REMEDY 4 OZ OINT TP PRN (15:00)
[2022-02-20] MEDS ORDERED: MAG HYDROX/AL HYDROX/SIMETH 30 ML UDC PO PRN (15:00)
[2022-02-20] MEDS ORDERED: ONDANSETRON HCL/PF 4 MG/2 ML VIAL IVP PRN (15:00)
[2022-02-20] MEDS ORDERED: MAGNESIUM HYDROXIDE 30 ML UDC PO PRN (15:00)
--- NOTE | 2022-02-20 15:00 | NUR ---
RN NOTE PATIENT ARRIVED ON THE UNIT THROUGH [facility] [place], ABLE TO AMBULATE TO BED. 2 SENIOR STATISTICAL PROGRAMMER AT BEDSIDE. PATIENT'S UPPER AND LOWER EXTREMITIES HANDCUFFS BY MIDDLEWARE ENGINEER. PATIENT ON RA WITH NO SIGNS OF LABORED BREATHING SAT 97%. LEFT UA SL IN PLACE FLUSHING WELL. PT REPORTING PAIN IN HIS JAW AND NECK. BED LOCKED AND IN LOWEST POSITION, CALL LIGHT WITHIN REACH, 2 SIDE RAILS UP.
[2022-02-20] MEDS ORDERED: LORAZEPAM 1 MG TABLET PO PRN (15:30)
[2022-02-20] MEDS ORDERED: NITROGLYCERIN 0.4 MG/TAB BOTTLE SL PRN (15:30)
[2022-02-20] MEDS: ACETAMINOPHEN 325 MG TABLET PO PRN ×2 (15:35→21:45)
[2022-02-20 16:00] VITALS: BP 134/63
--- NOTE | 2022-02-20 18:42 | NUR ---
RN CLOSING NOTE PATIENT REMAINS IN BED. PATIENT'S UPPER AND LOWER EXTREMITIES HANDCUFFS BY WORKERS COMPENSATION MANAGER, 2 WORKERS COMPENSATION MANAGER AT BEDSIDE. PATIENT ON RA WITH NO SIGNS OF LABORED BREATHING. LEFT UA SL IN PLACE. ALL NEEDS ATTENDED DURING SHIFT. BED LOCKED AND IN LOWEST POSITION, CALL LIGHT WITHIN REACH, 2 SIDE RAILS UP. WILL ENDORSE TO ADVERTISING COORDINATOR NURSE FOR BEBE.
--- NOTE | 2022-02-20 19:35 | NUR ---
RN NOTES RECEIVED PATIENT AWAKE ON BED, UNDER CUSTODY, POLICE AT BEDSIDE, A/OX4, SR ON TELE MONITOR HR-84, DENIES PAIN, NO SOB, CALL LIGHT WITHIN REACH, SIDERAILSUPX2, WILL CONTINUE TO MONITOR
[2022-02-20 20:00] VITALS: BP 121/62
--- NOTE | 2022-02-20 21:45 | NUR ---
RN NOTES COMPLAINED OF HEADACHE-TYLENOL 650MG PO GIVEN ORDERED
[2022-02-21] VITALS: BP 122/88
[2022-02-21 06:00] VITALS: BP 120/80
--- NOTE | 2022-02-21 06:24 | NUR ---
RN NOTES AWAKE, DENIES PAIN, NO SOB, POLICE STILL AT BEDSIDE, SIDEAILSUPX2, PT. NEEDS ATTENDED
[2022-02-21] MEDS: ACETAMINOPHEN 325 MG TABLET PO PRN (06:41)
--- NOTE | 2022-02-21 06:44 | NUR ---
RN NOTES COMPLAINED OF HEADACHE-TYLENOL 650MG PO GIVEN ORDERED
[2022-02-21 06:48] LABS: BASOPHILS % (AUTO) 0.8 % (0.0-2.0); EOSINOPHILS % (AUTO) 3.7 % (0.0-6.0); HEMATOCRIT 45 % (39-51); HEMOGLOBIN 14.7 g/dL (13.5-17.5); LYMPHOCYTES # (AUTO) 1.6 K/uL (0.8-4.8); MEAN CORPUSCULAR HGB CONC 33 g/dl (31.0-36.0); MEAN CORPUSCULAR VOLUME 85 fL (80-96); MONOCYTES # (AUTO) 0.6 K/uL (0.1-1.30); MONOCYTES % (AUTO) 11.4 % (2.0-12.0); NEUTROPHILS # (AUTO) 3.1 K/uL (1.8-8.9); NEUTROPHILS % (AUTO) 55.1 % (43.0-81.0); PLATELET COUNT (AUTO) 274 K/uL (150-450); RED BLOOD CELL COUNT(AUTO) 5.31 MIL/uL (4.5-6.0); WHITE BLOOD COUNT (AUTO) 5.6 K/uL (4.3-11.0)
[2022-02-21 07:25] LABS: CALCIUM, SERUM 8.6 mg/dL (8.5-10.1); CREATININE 0.8 mg/dL (0.6-1.3); MAGNESIUM 1.8 mg/dL (1.8-2.4); PHOSPHORUS 4.1 mg/dL (2.5-4.9); POTASSIUM 4.5 mmol/L (3.5-5.1)
[2022-02-21] MEDS ORDERED: LEVOTHYROXINE SODIUM 100 MCG TABLET PO SCH (07:30)
--- NOTE | 2022-02-21 07:30 | NUR ---
RN NOTES RECEIVED PATIENT ASLEEP IN BED, UNDER CUSTODY, POLICE AT BEDSIDE. ON TELE MONITOR. NO SIGNS OF DISTRESS NOTED. CALL LIGHT WITHIN REACH, SIDE RAILS UP X2, WILL CONTINUE PLAN OF CARE AND ANTICIPATE NEEDS
[2022-02-21 07:53] LABS: THYROID STIMULATING HORMONE 3.035 uIU/mL (0.358-3.74)
[2022-02-21 08:00] VITALS: BP 104/55
--- NOTE | 2022-02-21 08:41 | NUR ---
WOUND CARE CONSULT: PT PRESENTS WITH PINK WOUND WITH VERY SCANT PURULENT DRAINAGE WHICH PT STATES IS TENDER, PRESENT ON ADMISSION. DR ALVES NOTIFIED OF CONSULT REQUEST. RECOMMENDATIONS MADE FOR SKIN PROTECTION. DISCUSSED WITH NURSING STAFF. MD IN AGREEMENT WITH PLAN OF CARE.
[2022-02-21] MEDS ORDERED: ASPIRIN 325 MG TABLET PO SCH (09:00)
[2022-02-21] MEDS ORDERED: NEOMY SULF/BACITRAC ZN/POLY 15 GM TUBE TP SCH (09:00)
[2022-02-21 12:00] VITALS: BP 117/70
[2022-02-21 16:00] VITALS: BP 111/70
--- NOTE | 2022-02-21 16:35 | NUR ---
NURSE NOTE PATIENT HAS BEEN DISCHARGED BACK TO INTERMEDIATE. TELE BOX WAS REMOVED AND IV ACCESS DISCONTINUED WITH NO BLEEDING NOTED. PATIENT REFUSED TO SIGN DISCHARGE AND BELONGINGS FORMS, BUT VERBALIZED UNDERSTANDING OF HIS DISCHARGE PLAN. PATIENT WAS ESCORTED OUT OF THE UNIT BY TWO [employer] OFFICERS. VITAL SIGNS WERE WITHIN NORMAL LIMITS. OFFERED WHEELCHAIR OUT OF THE HOSPITAL, BUT PATIENT REFUSED. THE PATIENT WAS ABLE TO AMBULATE INDEPENDENTLY OUT OF THE HOSPITAL IN STABLE CONDITION.
== END 2022-02-21 16:38 | DRG 913 ==
LOC: ER 12:15 → TELE1 14:38
PROVIDERS: ADMIT Internal Medicine; ATTEND Internal Medicine
DX: S09.90XA Unspecified injury of head, initial encounter (principal); I21.A1 Myocardial infarction type 2; I42.9 Cardiomyopathy, unspecified; R55 Syncope and collapse; Y04.2XXA Assault by strike against or bumped into by another person, initial encounter; S09.93XA Unspecified injury of face, initial encounter; Y92.89 Other specified places as the place of occurrence of the external cause; Y92.148 Other place in prison as the place of occurrence of the external cause; F15.10 Other stimulant abuse, uncomplicated; E03.9 Hypothyroidism, unspecified; J45.909 Unspecified asthma, uncomplicated; L02.425 Furuncle of right lower limb; Z20.822 Contact with and (suspected) exposure to COVID-19; Z59.00 Homelessness unspecified
CPT/HCPCS: 36415; 70450-TC; 70486-TC; 71045-TC; 72125-TC; 80048-TC; 83735-TC; 84100-TC; 84443-TC; 84484-TC; 85025-TC; 87081-TC; 93307-TC; G0378

== ENCOUNTER 2023-02-12 18:17 | Emergency (ER) | payer OTHER ==
[~2023-02-12] VITALS: Ht 175.3 cm; Wt 80.7 kg
[~2023-02-12 18:17] MED LIST changes: +LEVO150T8 PO; -OLAN10TA3 PO; -OLAN5TAB3 PO
[2023-02-12 18:30] VITALS: BP 126/79
== END 2023-02-12 18:54 ==
LOC: ER 18:18
DX: F41.9 Anxiety disorder, unspecified (principal); R06.00 Dyspnea, unspecified; J45.909 Unspecified asthma, uncomplicated; F17.210 Nicotine dependence, cigarettes, uncomplicated; Z59.00 Homelessness unspecified; Z79.899 Other long term (current) drug therapy

== ENCOUNTER 2023-07-18 08:21 | Inpatient (IN) | payer OTHER ==
[~2023-07-18] VITALS: Ht 175.3 cm; Wt 81.6 kg
[2023-07-18] MEDS ORDERED: IBUPROFEN 600 MG TABLET PO ONE (08:30)
[2023-07-18] MEDS ORDERED: IBUPROFEN 600 MG TABLET ONE (08:41)
[2023-07-18] MEDS ORDERED: IV NS 0.9% 1,000 ML BAG IV ONE (09:00)
[2023-07-18] MEDS ORDERED: LORAZEPAM INJ 2 MG/ML VIAL IV ONE (09:00)
[2023-07-18] MEDS ORDERED: ONDANSETRON HCL/PF 4 MG/2 ML VIAL IVP ONE (09:00)
[2023-07-18] MEDS ORDERED: FAMOTIDINE/PF INJ 20 MG/2 ML VIAL IV ONE ×2 (09:00→10:28)
[2023-07-18] MEDS ORDERED: ONDANSETRON HCL/PF 4 MG/2 ML VIAL ONE (10:27)
[2023-07-18] MEDS ORDERED: LORAZEPAM INJ 2 MG/ML VIAL ONE (10:28)
[2023-07-18 10:40] LABS: MEAN CORPUSCULAR HGB CONC 33 g/dl (31.0-36.0)
[2023-07-18 10:42] LABS: BASOPHILS # (AUTO) 0.1 K/uL (0.0-0.2); BASOPHILS % (AUTO) 0.6 % (0.0-2.0); EOSINOPHILS # (AUTO) 0.1 K/uL (0.0-0.7); EOSINOPHILS % (AUTO) 0.6 % (0.0-6.0); HEMATOCRIT 46 % (39-51); LYMPHOCYTES # (AUTO) 0.8 K/uL (0.8-4.8); LYMPHOCYTES % (AUTO) 7.6 % (20.0-44.0); MEAN CORPUSCULAR HEMOGLOBIN 27 PG (26.0-33.0); MEAN CORPUSCULAR VOLUME 83 fL (80-96); MONOCYTES # (AUTO) 0.8 K/uL (0.1-1.30); MONOCYTES % (AUTO) 6.8 % (2.0-12.0); NEUTROPHILS # (AUTO) 9.4 K/uL (1.8-8.9); NEUTROPHILS % (AUTO) 84.4 % (43.0-81.0); PLATELET COUNT (AUTO) 262 K/uL (150-450); RED BLOOD CELL COUNT(AUTO) 5.57 MIL/uL (4.5-6.0); RED CELL DISTRIBUTION WIDTH 12.6 % (11.5-15.0); WHITE BLOOD COUNT (AUTO) 11.1 K/uL (4.3-11.0)
[2023-07-18] MEDS ORDERED: ASPIRIN 325 MG TABLET PO ONE (12:30)
[2023-07-18 12:51] LABS: ALANINE AMINOTRANSFERASE 51 U/L (12-78); ALBUMIN 3.5 g/dL (3.4-5.0); ALKALINE PHOSPHATASE 74 U/L (46-116); BILIRUBIN,TOTAL 0.5 mg/dL (0.2-1.0); CALCIUM, SERUM 9.1 mg/dL (8.5-10.1); CARBON DIOXIDE 23 mmol/L (21-32); CHLORIDE 105 mmol/L (98-107); CREATININE 0.9 mg/dL (0.6-1.3); GLUCOSE 98 mg/dL (74-106); LIPASE 11 U/L (16-77); POTASSIUM 4.6 mmol/L (3.5-5.1); SODIUM SERUM 141 mmol/L (136-145); TOTAL PROTEIN, SERUM 8.6 g/dL (6.4-8.2); UREA NITROGEN, BLOOD 15 mg/dL (7-18)
[2023-07-18] MEDS ORDERED: ASPIRIN 325 MG TABLET ONE (12:53)
[2023-07-18 13:09] LABS: ASPARTATE AMINOTRANSFERASE 88 U/L (15-37)
[2023-07-18] MEDS ORDERED: ONDANSETRON HCL/PF 4 MG/2 ML VIAL IVP PRN (18:00)
[2023-07-18] MEDS ORDERED: ZOLPIDEM TARTRATE 5 MG TABLET PO PRN (18:00)
[2023-07-18] MEDS ORDERED: MAGNESIUM HYDROXIDE 30 ML UDC PO PRN (18:00)
[2023-07-18] MEDS ORDERED: MAG HYDROX/AL HYDROX/SIMETH 30 ML UDC PO PRN (18:00)
[2023-07-18] MEDS ORDERED: IV D5/0.45 NACL 1,000 ML IV PRN (18:00)
[2023-07-18] MEDS ORDERED: ACETAMINOPHEN 325 MG TABLET PO PRN (18:00)
[2023-07-18] MEDS ORDERED: Z GUARD REMEDY 4 OZ OINT TP PRN (18:00)
[2023-07-18 20:00] VITALS: BP 149/87; TEMP 98.6; O2SAT 100
[2023-07-18] MEDS ORDERED: ENOXAPARIN SODIUM 40 MG/0.4 ML DISP.SYRIN SQ SCH (21:00)
[2023-07-19] VITALS: BP 155/85; TEMP 98.9; O2SAT 100
[2023-07-19 04:00] VITALS: BP 155/80; TEMP 98; O2SAT 100
[2023-07-19] MEDS ORDERED: ASPIRIN 81 MG TAB.CHEW PO SCH (09:00)
[2023-07-19] MEDS ORDERED: PANTOPRAZOLE 40 MG VIAL IV SCH (09:00)
== END 2023-07-19 06:47 | disposition left against medical advice (07) | DRG 812 ==
LOC: ER 08:41 → TELE1 18:19
PROVIDERS: ADMIT Student in an Organized Health Care Education/Training Program; ATTEND Student in an Organized Health Care Education/Training Program
DX: T43.651A Poisoning by methamphetamines accidental (unintentional), initial encounter (principal); I21.4 Non-ST elevation (NSTEMI) myocardial infarction; D72.829 Elevated white blood cell count, unspecified; E03.9 Hypothyroidism, unspecified; F20.9 Schizophrenia, unspecified; J45.909 Unspecified asthma, uncomplicated; Z59.00 Homelessness unspecified; Z79.82 Long term (current) use of aspirin; R74.01 Elevation of levels of liver transaminase levels; F17.210 Nicotine dependence, cigarettes, uncomplicated; F15.10 Other stimulant abuse, uncomplicated; Y92.009 Unspecified place in unspecified non-institutional (private) residence as the place of occurrence of the external cause; F31.9 Bipolar disorder, unspecified; I34.0 Nonrheumatic mitral (valve) insufficiency
CPT/HCPCS: 36415; 71045-TC; 80048-TC; 80076-TC; 83690-TC; 84484-TC; 85025-TC; 93307-TC; A4223; G0378; G0480; J1650; J2060; J2405; J3490

== ENCOUNTER 2023-10-26 18:16 | Emergency (ER) | payer OTHER | END 2023-10-26 23:47 | disposition left against medical advice (07) | LOC: ER 18:41 | DX: Z00.00 Encounter for general adult medical examination without abnormal findings (principal); Z53.21 Procedure and treatment not carried out due to patient leaving prior to being seen by health care provider ==

== ENCOUNTER 2023-11-05 13:04 | Emergency (ER) | payer OTHER ==
[~2023-11-05] VITALS: Ht 182.9 cm; Wt 83.9 kg
[2023-11-05 15:42] VITALS: TEMP 98.2
[2023-11-05 17:20] LABS: APPEARANCE,URINE CLEAR (CLEAR); BILIRUBIN,URINE 1+ (NEGATIVE); BLOOD, URINE NEGATIVE Ery/uL (NEGATIVE); COLOR,URINE YELLOW (YELLOW); KETONES,URINE 3+ mg/dL (NEGATIVE); LEUKOCYTE ESTERASE ,URINE NEGATIVE (NEGATIVE); NITRITE, URINE NEGATIVE (NEGATIVE); PH,URINE 6.5 (5.0-8.0); PROTEIN,URINE TRACE mg/dl (NEGATIVE); UGLUCOSE NEGATIVE (NEGATIVE)
[2023-11-05 17:29] LABS: AMPHETAMINE, URINE POSITIVE (NEGATIVE); BARBITURATE, URINE NEGATIVE (NEGATIVE); BENZODIAZEPINE, URINE NEGATIVE (NEGATIVE); CANNABINOID, URINE NEGATIVE (NEGATIVE); COCCAINE, URINE NEGATIVE (NEGATIVE); OPIATE, URINE NEGATIVE (NEGATIVE); PHENCYCLIDINE SCREEN,URINE NEGATIVE (NEGATIVE)
[2023-11-05 17:38] LABS: ADD URINE CULTURE NO; BACTERIA,URINE None seen /HPF (None Seen); MUCUS,URINE Few /LPF (None Seen); RBC,URINE NONE SEEN /HPF (0-2); SQUAMOUS EPITHELIAL CELL,UR None Seen /HPF (None Seen); WBC,URINE NONE SEEN /HPF (0-3)
[2023-11-05 17:39] LABS: BASOPHILS % (AUTO) 0.1 % (0.0-2.0); HEMATOCRIT 51 % (39-51); HEMOGLOBIN 16.2 g/dL (13.5-17.5); LYMPHOCYTES # (AUTO) 0.4 K/uL (0.8-4.8); LYMPHOCYTES % (AUTO) 5.7 % (20.0-44.0); MEAN CORPUSCULAR HEMOGLOBIN 27 PG (26.0-33.0); MEAN CORPUSCULAR HGB CONC 32 g/dl (31.0-36.0); MEAN CORPUSCULAR VOLUME 85 fL (80-96); MONOCYTES # (AUTO) 0.3 K/uL (0.1-1.30); MONOCYTES % (AUTO) 4.4 % (2.0-12.0); NEUTROPHILS # (AUTO) 6.3 K/uL (1.8-8.9); NEUTROPHILS % (AUTO) 89.8 % (43.0-81.0); PLATELET COUNT (AUTO) 289 K/uL (150-450); RED BLOOD CELL COUNT(AUTO) 5.92 MIL/uL (4.5-6.0); RED CELL DISTRIBUTION WIDTH 13.3 % (11.5-15.0)
[2023-11-05 17:48] LABS: CALCIUM, SERUM 9.5 mg/dL (8.5-10.1); CARBON DIOXIDE 23 mmol/L (21-32); CHLORIDE 96 mmol/L (98-107); CREATININE 0.4 mg/dL (0.6-1.3); GLUCOSE 85 mg/dL (74-106); POTASSIUM 4.2 mmol/L (3.5-5.1); SODIUM SERUM 132 mmol/L (136-145); UREA NITROGEN, BLOOD 11 mg/dL (7-18)
[2023-11-05 17:53] LABS: ALANINE AMINOTRANSFERASE 41 U/L (12-78); ALBUMIN 3.2 g/dL (3.4-5.0); ALCOHOL, BLOOD < 3 mg/dL (0-10); ALKALINE PHOSPHATASE 89 U/L (46-116); ASPARTATE AMINOTRANSFERASE 38 U/L (15-37); BILIRUBIN,DIRECT 0.1 mg/dL (0.0-0.2); BILIRUBIN,TOTAL 0.4 mg/dL (0.2-1.0); TOTAL PROTEIN, SERUM 8.5 g/dL (6.4-8.2)
[2023-11-05 17:54] LABS: ACETAMINOPHEN 0 ug/ml (10-30); SALICYLATE 1.4 mg/dL (2.8-20.0)
[2023-11-05 18:05] VITALS: BP 146/82; O2SAT 98
== END 2023-11-05 21:07 ==
LOC: ER 13:08
DX: R45.851 Suicidal ideations (principal); F20.9 Schizophrenia, unspecified; F31.9 Bipolar disorder, unspecified; F17.200 Nicotine dependence, unspecified, uncomplicated; Z60.2 Problems related to living alone; Z20.822 Contact with and (suspected) exposure to COVID-19
CPT/HCPCS: 36415; 80048-TC; 80076-TC; 81001; 85025-TC; G0480

== ENCOUNTER 2024-10-22 18:51 | Emergency (ER) | payer MEDICAID, OTHER ==
[~2024-10-22] VITALS: Ht 182.9 cm; Wt 90.7 kg
[2024-10-22] MEDS: ONDANSETRON HCL/PF 4 MG/2 ML VIAL IVP ONE (19:00)
[2024-10-22] MEDS: IV NS 0.9% 1,000 ML BAG IV ONE (19:00)
[2024-10-22] MEDS ORDERED: ONDANSETRON HCL/PF 4 MG/2 ML VIAL ONE ×2 (19:47→19:51)
[2024-10-22] MEDS ORDERED: ONDA4TAB5 PO (20:40)
[2024-10-22 20:59] LABS: BASOPHILS % (AUTO) 0.2 % (0.0-2.0); EOSINOPHILS % (AUTO) 0.1 % (0.0-6.0); HEMATOCRIT 47 % (39-51); LYMPHOCYTES # (AUTO) 0.6 K/uL (0.8-4.8); LYMPHOCYTES % (AUTO) 4.6 % (20.0-44.0); MEAN CORPUSCULAR HEMOGLOBIN 27 PG (26.0-33.0); MEAN CORPUSCULAR HGB CONC 32 g/dl (31.0-36.0); MEAN CORPUSCULAR VOLUME 83 fL (80-96); MONOCYTES # (AUTO) 0.7 K/uL (0.1-1.30); MONOCYTES % (AUTO) 5.7 % (2.0-12.0); NEUTROPHILS # (AUTO) 11.2 K/uL (1.8-8.9); NEUTROPHILS % (AUTO) 89.4 % (43.0-81.0); PLATELET COUNT (AUTO) 273 K/uL (150-450); RED CELL DISTRIBUTION WIDTH 12.5 % (11.5-15.0); WHITE BLOOD COUNT (AUTO) 12.5 K/uL (4.3-11.0)
[2024-10-22 21:08] LABS: CALCIUM, SERUM 9.4 mg/dL (8.5-10.1); CREATININE 0.9 mg/dL (0.6-1.3); POTASSIUM 4.7 mmol/L (3.5-5.1)
[2024-10-22 21:14] LABS: ALBUMIN 3.6 g/dL (3.4-5.0); BILIRUBIN,DIRECT 0.1 mg/dL (0.0-0.2); BILIRUBIN,TOTAL 0.5 mg/dL (0.2-1.0); TOTAL PROTEIN, SERUM 9.5 g/dL (6.4-8.2)
[2024-10-22 22:44] LABS: ACETAMINOPHEN <10 ug/ml (10-30); ALCOHOL, BLOOD < 3 mg/dL (0-10); SALICYLATE 1.2 mg/dL (2.8-20.0)
[2024-10-22] MEDS ORDERED: ACETAMINOPHEN 325 MG TABLET ONE (23:23)
[2024-10-22] MEDS: ACETAMINOPHEN 325 MG TABLET PO ONE (23:24)
[2024-10-22] MEDS ORDERED: ONDANSETRON 4 MG TAB.RAPDIS ONE (23:56)
[2024-10-22] MEDS: ONDANSETRON 4 MG TAB.RAPDIS SL ONE (23:57)
[2024-10-23 01:41] VITALS: BP 155/98; TEMP 98.1; O2SAT 100
[2024-10-24] MEDS ORDERED: ONDA4TAB5 PO (13:09)
== END 2024-10-23 01:42 | disposition home or self-care (01) ==
LOC: ER 19:02
DX: R11.2 Nausea with vomiting, unspecified (principal); R10.13 Epigastric pain; F17.200 Nicotine dependence, unspecified, uncomplicated; J45.909 Unspecified asthma, uncomplicated; F31.9 Bipolar disorder, unspecified; F20.9 Schizophrenia, unspecified; Z60.2 Problems related to living alone; Z59.00 Homelessness unspecified; Z20.822 Contact with and (suspected) exposure to COVID-19
CPT/HCPCS: 99285; 96374; 96361; 74176; 85025; 80048; 83690; 80076; 36415; 87426; 80143; 80320; J2405; J7030; Q0162; G0480

== ENCOUNTER 2024-10-24 11:32 | Emergency (ER) | payer OTHER ==
[~2024-10-24] VITALS: Ht 180.3 cm; Wt 90.7 kg
[~2024-10-24 11:32] MED LIST changes: -LEVO150T8 PO; +ONDA4TAB5 PO
[2024-10-24 11:40] VITALS: BP 138/92; TEMP 98; O2SAT 100
[2024-10-24] MEDS ORDERED: ONDANSETRON 4 MG TAB.RAPDIS ONE ×2 (12:29→13:38)
[2024-10-24] MEDS: ONDANSETRON 4 MG TAB.RAPDIS SL ONE ×2 (12:31→13:43)
[2024-10-24] MEDS ORDERED: ONDA4TAB5 PO (13:09)
[2024-10-25] MEDS ORDERED: ONDANSETRON 4 MG TAB.RAPDIS ONE (06:20)
== END 2024-10-24 13:50 | disposition home or self-care (01) ==
LOC: ER 11:32
DX: R11.2 Nausea with vomiting, unspecified (principal); F17.200 Nicotine dependence, unspecified, uncomplicated; F31.9 Bipolar disorder, unspecified; J45.909 Unspecified asthma, uncomplicated
CPT/HCPCS: 99283; Q0162 ×2